=== PATIENT | male | born 1995 | race Caucasian/White ===

== ENCOUNTER 2023-07-10 10:50 | Emergency (ER) | payer OTHER ==
[~2023-07-10] VITALS: Ht 188 cm; Wt 136.1 kg
[2023-07-10 12:20] VITALS: BP 147/107
[2023-07-10] MEDS ORDERED: CYCL10 PO (12:51)
== END 2023-07-10 13:06 | disposition home or self-care (01) ==
LOC: ER 10:50
DX: M54.50 Low back pain, unspecified (principal); Z87.81 Personal history of (healed) traumatic fracture
CPT/HCPCS: 99283-25; A9270; J1885